=== PATIENT | female | born 1975 | race African-American/Black ===

== ENCOUNTER 2019-10-27 12:38 | Emergency (ER) | payer SELFPAY ==
[~2019-10-27] VITALS: Ht 160 cm; Wt 74.8 kg
[~2019-10-27 12:38] MED LIST: ACETAMINOPHEN325 M1 PO
== END 2019-10-27 14:31 | disposition home or self-care (01) ==
LOC: ER 12:38
DX: M25.512 Pain in left shoulder (principal); S46.812A Strain of other muscles, fascia and tendons at shoulder and upper arm level, left arm, initial encounter
CPT/HCPCS: 99283

== ENCOUNTER 2020-06-03 18:41 | Emergency (ER) | payer SELFPAY ==
[~2020-06-03] VITALS: Ht 160 cm; Wt 68.0 kg
[2020-06-03] MEDS ORDERED: SODIUM CHLORIDE 0.9% 1000ML 1,000 ML IV STA (18:53)
[2020-06-03 19:16] LABS: BASOPHILS % 0.4 % (0.0-1.0); EOSINOPHILS # (AUTO) 0.3 (0.0-0.4); EOSINOPHILS % 4.5 % (0.0-6.0); HEMATOCRIT 36.9 % (34.2-44.1); HEMOGLOBIN 11.8 g/dL (12.0-16.0); LYMPHOCYTES # (AUTO) 2.8 (1.0-3.2); LYMPHOCYTES % 39.7 % (18.0-39.1); MEAN CORPUSCULAR HEMOGLOBIN 26.8 pg (28-32); MEAN CORPUSCULAR VOLUME 83.9 fL (81-99); MONOCYTES # (AUTO) 0.5 (0.2-0.8); MONOCYTES % 7.1 % (4.4-11.3); NEUTROPHILS # (AUTO) 3.3 (2.1-6.9); NEUTROPHILS % 48.2 % (38.7-80.0); PLATELET COUNT 236 x10e3/uL (140-360); RED CELL DISTRIBUTION WIDTH 14.6 % (11.7-14.4)
[2020-06-03 19:40] LABS: ALANINE AMINOTRANSFERASE 7 IU/L (0-55); ALBUMIN 4.2 g/dL (3.5-5.0); ALBUMIN/GLOBULIN RATIO 1.1 (0.8-2.0); ALKALINE PHOSPHATASE 78 IU/L (40-150); ANION GAP 13.6 mmol/L (8-16); BLOOD UREA NITROGEN 10 mg/dL (7-26); BUN/CREATININE RATIO 11 (6-25); CALCIUM 9.5 mg/dL (8.4-10.2); CARBON DIOXIDE 23 mmol/L (22-29); CHLORIDE 105 mmol/L (98-107); CREATINE KINASE 97 IU/L (29-168); EST GLOMERULAR FILTRATION RATE > 60 ML/MIN (60-); GLUCOSE 88 mg/dL (74-118); POTASSIUM 3.6 mmol/L (3.5-5.1); SODIUM 138 mmol/L (136-145)
[2020-06-03] MEDS ORDERED: NITROGLYCERIN 2% OINT 1 GM PKT TOP ONE (19:45)
[2020-06-03 19:51] LABS: AMPHETAMINES SCREEN,URINE NEGATIVE (NEGATIVE); BENZODIAZEPINES SCREEN,URINE NEGATIVE (NEGATIVE); PHENCYCLIDINE SCREEN,URINE NEGATIVE (NEGATIVE); PREGNANCY TEST, URINE NEGATIVE (NEGATIVE)
[2020-06-03] MEDS ORDERED: IOPAMIDOL 370 MG/ML 200 ML INFUS..BTL INJ ONE (20:37)
[2020-06-03] MEDS ORDERED: SODIUM CHLORIDE 0.9% 50ML 50 ML ONE (20:37)
[2020-06-03] MEDS ORDERED: MORPHINE SULFATE INJ 4 MG/ML INJ 1ML IV STA (21:08)
[2020-06-03] MEDS ORDERED: ONDANSETRON HCL INJ 2MG/ML 2ML 2 MG/ML VIAL IV STA (21:08)
[2020-06-03 21:52] VITALS: BP 138/82
== END 2020-06-03 22:16 | disposition home or self-care (01) ==
LOC: ER 20:19
DX: R07.9 Chest pain, unspecified (principal); I10 Essential (primary) hypertension
CPT/HCPCS: 36415; 71260; 80053; 80307; 81025; 82550; 82553; 83880; 84484; 85025; 93005; 99284; J2270; J2405; J7030; Q9967